=== PATIENT | male | born 1975 | race Caucasian/White ===

== ENCOUNTER 2021-09-01 12:44 | Emergency (ER) | payer OTHER, SELFPAY ==
[2021-09-01 13:53] VITALS: BP 166/93; PULSE 78; RESP 20; TEMP 36.8; O2SAT 99
--- NOTE | 2021-09-01 14:43 | ED.GENADULT ---
HPI - General Adult General Chief complaint: Eye Problems Stated complaint: eye injury Time Seen by Provider: 09/01/21 13:53 Source: patient Mode of arrival: ambulatory Limitations: no limitations History of Present Illness HPI narrative: Patient presents for evaluation of right eye irritation. He believes he has a corneal abrasion. He was laying in bed this morning, and adjusting the covers when he accidentally scratched his eye. He states he has pain, tearing, irritation and photosensitivity in affected eye. He does not wear glasses or contacts. He is not diabetic. He is up to date on tetanus. No additional complaints or concerns. Related Data Allergies Allergy/AdvReac Type Severity Reaction Status Date / Time No Known Allergies Allergy Verified 09/01/21 14:03 Review of Systems Review of Systems: CONSTITUTIONAL: Denies fever, chills, or sweats. EYES: Reports right eye irritation, pain, tearing and photophobia ENT: Denies rhinorrhea, congestion, sore throat, or otalgia. CARDIOVASCULAR: Denies chest pain, palpitations, or edema. RESPIRATORY: Denies cough or dyspnea. GASTROINTESTINAL: Denies abdominal pain, nausea, vomiting, or diarrhea. GENITOURINARY: Denies dysuria or hematuria. SKIN: Denies rash or itching. MUSCULOSKELETAL: Denies back pain, joint pain, or myalgia. NEUROLOGIC: Denies headache, numbness, dizziness, or weakness. PSYCHIATRIC: Denies anxiety or depression. PMFSH Past Medical History Medical History (Updated 09/01/21 @ 15:28 by MADDY Marin, ) No pertinent past medical history Surgical History Surgical History No pertinent past surgical history Family History Family History (Updated 09/01/21 @ 14:59 by MADDY Marin, ) Mother No pertinent past medical history Social History Social History Alcohol intake: current Alcohol use details: 4 drinks per day Living arrangements: with family Gender identity (if verbalized by the patient): Male Sexual Orientation (if Verbalized by the Patient): Straight or Heterosexual Spiritual care concerns: No Exam Narrative: GENERAL: Well-appearing, well-nourished, and in no acute distress. Seated in dark room HEAD: Normocephalic, atraumatic. EYES: right conjunctival injection with tearing. Evaluation with wood's lamp revealed linear area of dye uptake noted over the right iris at 6 o'clock position inferior to the pupil ENT: Nares clear, no rhinorrhea or epistaxis. Mucous membranes moist. Oropharynx without tonsillar hypertrophy exudate or other lesions. Bilateral TMs pearly tay nonbulging NECK: Supple. No adenopathy or masses. No carotid bruits or JVD CHEST: Clear to auscultation. No respiratory distress. No wheezes rales or rhonchi HEART: Regular rate and rhythm. No murmur heard. Normal peripheral pulses. ABDOMEN: Soft, nontender, nondistended, normal active bowel sounds. EXTREMITIES: Normal range of motion. No edema. SKIN: Warm, dry, no rash. NEURO: No focal deficits. Alert and oriented x3. PSYCH: Normal mood and affect. Course Course Emergency Course: This is a 46-year-old male who presented with complaints of right eye pain, irritation, tearing after he scrtached his eye earlier today. Wood's Lamp evaluation revealed a corneal abrasion. He will be treated with ophthlamic antibiotic ointment and follow up next week. He should return for worsening symptoms. Pt in agreement with plan of care. Vital Signs Vital signs: Vital Signs Temperature 36.8 C 09/01/21 13:53 Pulse Rate 78 09/01/21 13:53 Respiratory Rate 20 09/01/21 13:53 Blood Pressure 166/93 H 09/01/21 13:53 Pulse Oximetry 99 09/01/21 13:53 Temperature 36.8 C 09/01/21 13:53 Pulse Rate 78 09/01/21 13:53 Respiratory Rate 20 09/01/21 13:53 Blood Pressure 166/93 H 09/01/21 13:53 Pulse Oximetry 99 09/01/21 1
== END 2021-09-01 15:45 | disposition home or self-care (01) ==
PROVIDERS: Emergency Provider Nurse Practitioner; PCP Physician Assistant
DX: S05.01XA Injury of conjunctiva and corneal abrasion without foreign body, right eye, initial encounter (principal); X58.XXXA Exposure to other specified factors, initial encounter
CPT/HCPCS: 99283; A9270